=== PATIENT | male | born 1995 | race Caucasian/White ===

== ENCOUNTER 2021-06-23 16:26 | Emergency (ER) | payer OTHER ==
[2021-06-23 17:03] LABS: RED BLOOD COUNT 4.73 M/UL (4.20-5.50); WHITE BLOOD COUNT 10.9 K/UL (4.5-11.0)
[2021-06-23 17:26] LABS: BUN/CREATININE RATIO 18 (0-10)
== END 2021-06-23 21:00 | disposition other institution (70) ==
LOC: ER1 16:26
PROVIDERS: Emergency Medicine
DX: S22.41XA Multiple fractures of ribs, right side, initial encounter for closed fracture (principal); S92.001A Unspecified fracture of right calcaneus, initial encounter for closed fracture; F17.200 Nicotine dependence, unspecified, uncomplicated; V49.3XXA Car occupant (driver) (passenger) injured in unspecified nontraffic accident, initial encounter
CPT/HCPCS: 29515; 36415; 70450; 71045; 71260; 72125; 72170; 73590; 73630; 80053; 82550; 82553; 83605; 83874; 84484; 85025; 85610; 85730; 93005; 96374; 96375; 96376; 99285; J1170; J2270; J2405; Q9967; U0002